=== PATIENT | female | born 1950 | race Caucasian/White ===

== ENCOUNTER 2019-06-16 08:17 | Observation (INO) ==
[2019-06-16] MEDS ORDERED: SODIUM CHLORIDE 0.9% 1000ML 1,000 ML IV SCH (09:00)
[2019-06-16 09:08] LABS: Basophils # (auto) 0.03 K/uL (0-0.2); Basophils % (auto) 0.4 %; Eosinophils # (auto) 0.13 K/uL (0-0.5); Eosinophils % (auto) 1.7 %; Hematocrit (blood only) 44.1 % (37-47); Hemoglobin 14.9 g/dL (12.0-16.0); Immature Granulocytes # (auto) 0.01 K/uL (0.00-0.02); Immature Granulocytes % (auto) 0.1 %; Lymphocytes # (auto) 1.27 K/uL (1.2-3.4); Lymphocytes % (auto) 16.3 %; Mean Corpuscular Hemoglobin 29.9 pg (25-34); Mean Corpuscular Hgb Conc 33.8 g/dL (32-36); Mean Corpuscular Volume 88.6 fL (80-100); Mean Platelet Volume 9.9 fL (7.4-10.4); Monocytes # (auto) 0.49 K/uL (0.11-0.59); Monocytes % (auto) 6.3 %; Neutrophils # (auto) 5.85 K/uL (1.4-6.5); Neutrophils % (auto) 75.2 %; Platelet Count 250 K/uL (130-400); RDW Coefficient of Variation 12.7 % (11.5-14.5); Red Blood Count 4.98 M/uL (4.2-5.4); White Blood Count 7.78 K/uL (4.8-10.8)
[2019-06-16 09:18] LABS: Alanine Aminotransferase 22 U/L (12-78); Aspartate Aminotransferase 23 U/L (15-37); BUN Creatinine Ratio 20.1 (10-20); Blood Urea Nitrogen 16 mg/dl (7-18); Calcium 9.4 mg/dl (8.5-10.1); Carbon Dioxide 30 mmol/L (21-32); Chloride 106 mmol/L (98-107); Creatinine Clr Calc Pharmacy 58.1 ml/min; Est GFR (African American) 87.8; Est GFR (Non-African American) 75.8; Glucose 89 mg/dl (70-99); Lipase 101 U/L (73-393); Magnesium 2.1 mg/dl (1.8-2.4); Potassium 4.3 mmol/L (3.5-5.1); Sodium 141 mmol/L (136-145)
[2019-06-16 09:23] LABS: Alkaline Phosphatase 74 U/L (45-117); Bilirubin,Total 0.5 mg/dl (0.2-1); Globulin 3.9 gm/dl (2.5-4.0); Phosphorus 3.2 mg/dl (2.5-4.9); Total Protein 7.9 gm/dl (6.4-8.2); Troponin I < 0.015 ng/ml (0-0.045)
--- NOTE | 2019-06-16 09:28 | XRay Report ---
XR chest 1V portable CLINICAL HISTORY: Chest Pain dyspnea COMPARISON STUDY: No previous studies for comparison. FINDINGS: The bones soft tissues and hemidiaphragms are normal. The cardiomediastinal silhouette is n ormal. The lungs are clear. The pulmonary vasculature is normal. IMPRESSION: Negative chest. ACT 112: Negative or not required by law. The above report was generated using voice recognition software. It may contain grammatical, syntax or spelling errors. Electronically signed by: Maximiliano Arciniega M.D. 06/16/2019 9:27 AM
[2019-06-16] MEDS ORDERED: OPTIRAY 320 125ml IV PRN (10:01)
--- NOTE | 2019-06-16 10:19 | CT Scan Report ---
HEAD CT NONCONTRAST CT DOSE: HISTORY: transient ataxia TECHNIQUE: Multiaxial CT images of the head were performed without the use of intravenous contrast. A utomated exposure control was utilized for this study. A dose lowering technique was utilized adheri ng to the principles of ALARA. Comparison: None. Findings: The paranasal sinuses and mastoid air cells are clear. The calvarium and skull base are int act. The ventricles and sulci are within normal limits. There is no mass, hematoma, midline shift, or acute infarct. Impression: No acute intracranial abnormality. ACT 112: Negative or not required by law. Electronically signed by: Roberto Martinez M.D. 06/16/2019 10:18 AM
--- NOTE | 2019-06-16 10:20 | CT Scan Report ---
CT angio head w con HISTORY: Mental status change transient ataxia TECHNIQUE: Multiaxial CT angiography of the head was performed IV contrast: 100 cc nonionic Maximu m intensity projection images were also obtained. A dose lowering technique was utilized adhering to the principles of ALARA. COMPARISON: None. FINDINGS: There is no mass, hematoma, midline shift, or acute infarct. Visualized intracranial software development intern al carotid arteries, distal vertebral arteries, and basilar artery are widely patent. There is no sig nificant stenosis, occlusion, or aneurysm seen within the bilateral ACAs, MCAs, or clinical nutritionist. IMPRESSION: No significant stenosis, occlusion, or aneurysm within the [place]. ACT 112: Negative or not required by law. The above report was generated using voice recognition software. It may contain grammatical, syntax or spelling errors. Electronically signed by: Maximiliano Arciniega M.D. 06/16/2019 10:18 AM
--- NOTE | 2019-06-16 10:28 | CT Scan Report ---
CT angio neck with con HISTORY: Mental status change transient ataxia TECHNIQUE: Multiaxial CT angiography of the neck was performed IV contrast: 100 cc non-ionic All kmio surements were calculated based on NASCET criteria. Maximum intensity projection images were also ob tained. A dose lowering technique was utilized adhering to the principles of ALARA. COMPARISON STUDY: None. FINDINGS: The aortic arch and proximal great vessels are widely patent. The vertebral basilar system appears unremarkable. The left carotid system demonstrates minimal plaque formation at the bifurcation. There is no signifi cant stenotic process. The right carotid bifurcation shows more significant calcific plaque formation. There is 50% narrowin g of the origin of the right internal carotid artery. There is minimal narrowing origin of the right external carotid artery. IMPRESSION: 1. Normal vertebral basilar system. 2. 50% narrowing origin right internal carotid artery. 3. Minimal plaque formation right external carotid artery. 4. Minimal plaque formation left carotid bifurcation with no significant stenosis. ACT 112: Negative or not required by law. The above report was generated using voice recognition software. It may contain grammatical, syntax or spelling errors. Electronically signed by: Maximiliano Arciniega M.D. 06/16/2019 10:27 AM
--- NOTE | 2019-06-16 11:11 | Emergency Department Note ---
ED Visit Note Patient seen in conjunction with Dr. Up. Please see his documentation for medical decision making. . Resident Activity Tracking Resident Involvement: Resident Care Provided Care Provided: Adult ED
--- NOTE | 2019-06-16 12:07 | History & Physical Report ---
Date of Service June 16, 2019 Assessment & Plan (1) Stroke-like symptom: 68yo C female with HTN, HLP presenting with episode of ataxia, lightheadedness and visual disturbance. Afebrile, HD stable, imaging unrevealing thus far, some 50% stenosis in R ICA. Concern for TIA/CVA vs blood pressure fluctuation/orthostasis with newly increased Lisinopril -Observation to medical floor with telemetry -Neuro checks/ stroke protocol -Check orthostatic VS -Check Lipids/AIC -Check MRI brain -Check 2D echo - patient with 3/6 IGNACIO -Lipids and A1C in AM -Will increase Pravastatin to 40mg po daily -Initiate ASA 81mg po daily -Neurology consultation per protocol appreciated Present on Admission?: Yes (2) HTN (hypertension): Patient recently increased her Lisinopril from 20mg to 40mg daily -Check orthostatic VS x 1 -Hold Lisinopril for now to allow for permissive HTN in possible TIA/CVA -Continue to monitor Present on Admission?: Yes (3) Hyperlipidemia: Chronic -Increase Pravastatin to 40mg po daily -Continue CoQ10 -Lipid panel in AM Present on Admission?: Yes (4) GERD (gastroesophageal reflux disease): Chronic. Stable -Continue Protonix F/E/N - Heplock. Electrolytes WNL, glucose and Na. Heart healthy diet as tolerated Ppx - SCDs Code - FUll Dispo - Observation to medical floor with telemetry History of Present Illness Chief Complaint: Ataxia Primary Care Provider: Jamari Escalona DO Maria Luisa Virgen is a pleasant 68yo C female with remote history of breast cancer s/p partial mastectomy and XRT, briefly on hormone therapy, HTN/HLP and GERD. She presents today after a brief episode of ataxia. She reports waking this morning and having some bandlike discomfort across her back/shoulder blades. When she got out of bed to walk to the bathroom she felt unsteady on her feet, lightheaded and started leaning to the right. She also had some blurry vision in both eyes. She sat down and checked her blood pressure which was 150 systolic. She took her Lisinopril 40mg. Her symptoms resolved after approximately 10 minutes. Patient now with mild headache and still has some minor visual disturbance/blurry vision in her right eye. Otherwise no complaints. She denies fevers/chills/chest pain/palpitations/SOB/cough/wheeze/abdominal pain/nausea/vomiting or diarrhea. She has constipation at baseline. She reports markedly elevated blood pressures a few weeks ago - 170 - 180/100. She recently increased her Lisinopril from 20mg po daily to 40. She keeps track of her blood pressure and has noticed improvement with the increased dose. Now 130-140's typically. She has occasional dizziness after taking her medication. ER Course: NSS Allergies Allergy/AdvReac Type Severity Reaction Status Date / Time steroids Allergy Severe severe Uncoded 06/16/19 08:52 rash from knees to neck Home Medications Home Medications Medication Instructions Recorded Confirmed Type albuterol sulfate 2 puff INHALATION Q4H PRN 06/16/19 06/16/19 History coenzyme Q10 [CoQ-10] 30 mg PO HS 06/16/19 06/16/19 History lisinopril 40 mg PO QAM 06/16/19 06/16/19 History melatonin 5 mg PO HS 06/16/19 06/16/19 History pantoprazole 40 mg PO QAM 06/16/19 06/16/19 History pravastatin 10 mg PO HS 06/16/19 06/16/19 History Past Med/Surg History Medical History (Updated 06/16/19 @ 12:06 by Patience Ontiveros DO) Breast cancer (Chronic ~2008) GERD (gastroesophageal reflux disease) HTN (hypertension) (Acute) Hyperlipidemia Surgical History (Updated 06/16/19 @ 11:57 by Patience Ontiveros DO) History of cholecystectomy History of lumpectomy Family History Other Myocardial infarction Social History (Updated 06/16/19 @ 11:58 by Patience Ontiveros DO) Feels Safe at Home: Yes Smoking Status: Never smoker Hx Alcohol Use: Yes Alcohol Intake Frequency: Holidays/Special Occasions Hx Substance Use: No Review of Systems Review of Systems: All systems reviewed & are unremarkable except as noted in HPI & below Physical Exam Physical Exam: General: patient resting comfortably, NAD, non-toxic in appearance, AA&O x 4 Skin: warm, dry, intact, no rashes or lesions HEENT: NC/AT, PERRL, EOMI, anicteric sclera, conjunctiva without injection, external ear normal to inspection and nontender, nares patent, moist mucus membranes, dentition intact, no oropharyngeal lesions, neck supple, trachea midline, no LAD, no thyromegaly, no JVD, +ear creases Heart: +S1/S2, regular, 3/6 IGNACIO across precordium to bilateral carotids Lungs: equal air entry bilaterally, no rales/rhonchi/wheezes Abd: +BS, soft, NT/ND, no masses/organomegaly/ascites Ext: warm, 2+ pulses in UE/LE bilaterally, no clubbing/cyanosis or edema Neuro: nonfocal, patient AA&O x 4, speech intact, no facial droop, CN II - XII intact, no nystagmus, sensation to light touch intact, moving all extremities on command with equal strength 5/5, coordination intact with finger to nose and heel to lopez. Patient reports unsteady gait and dizziness while using the bathroom. Results & Data Vital Signs (Past 12 Hours) Vital Signs Temp Pulse Pulse Resp BP BP Pulse Ox 06/16/19 11:00 84 18 137/78 97 06/16/19 10:30 84 21 141/73 H 98 06/16/19 10:11 85 24 152/68 H 98 06/16/19 09:30 82 14 149/86 H 99 06/16/19 09:00 90 18 169/90 H 97 06/16/19 08:33 112 H 18 178/86 H 96 06/16/19 08:30 98 06/16/19 08:18 36.5 C 104 H 20 181/82 H 98 Laboratory Results Lab Results 06/16/19 06/16/19 Range/Units 08:55 08:55 WBC 7.78 (4.8-10.8) K/uL RBC 4.98 (4.2-5.4) M/uL Hgb 14.9 (12.0-16.0) g/dL Hct 44.1 (37-47) % MCV 88.6 (80-100) fL MCH 29.9 (25-34) pg MCHC 33.8 (32-36) g/dL RDW Std Deviation 41.0 (36.4-46.3) fL RDW Coeff of Kal 12.7 (11.5-14.5) % Plt Count 250 (130-400) K/uL MPV 9.9 (7.4-10.4) fL Immature Gran % (Auto) 0.1 % Neut % (Auto) 75.2 % Lymph % (Auto) 16.3 % [place] % (Auto) 6.3 % Eos % (Auto) 1.7 % Baso % (Auto) 0.4 % Immature Gran # (Auto) 0.01 (0.00-0.02) K/uL Neut # (Auto) 5.85 (1.4-6.5) K/uL Lymph # (Auto) 1.27 (1.2-3.4) K/uL Hardin # (Auto) 0.49 (0.11-0.59) K/uL Eos # (Auto) 0.13 (0-0.5) K/uL Baso # (Auto) 0.03 (0-0.2) K/uL Sodium 141 (136-145) mmol/L Potassium 4.3 (3.5-5.1) mmol/L Chloride 106 (98-107) mmol/L Carbon Dioxide 30 (21-32) mmol/L Anion Gap 4.0 (3-11) BUN 16 (7-18) mg/dl Creatinine 0.80 (0.6-1.2) mg/dl Est Cr Clr Drug Dosing 58.1 ml/min Est GFR ( Amer) 87.8 Est GFR (Non-Af Amer) 75.8 BUN/Creatinine Ratio 20.1 H (10-20) Glucose 89 (70-99) mg/dl Calcium 9.4 (8.5-10.1) mg/dl Phosphorus 3.2 (2.5-4.9) mg/dl Magnesium 2.1 (1.8-2.4) mg/dl Total Bilirubin 0.5 (0.2-1) mg/dl AST 23 (15-37) U/L ALT 22 (12-78) U/L Alkaline Phosphatase 74 (45-117) U/L Troponin I < 0.015 (0-0.045) ng/ml Total Protein 7.9 (6.4-8.2) gm/dl Albumin 4.0 (3.4-5.0) gm/dl Globulin 3.9 (2.5-4.0) gm/dl Albumin/Globulin Ratio 1.0 (0.9-2) Lipase 101 (73-393) U/L Diagnostic Findings XR chest 1V portable CLINICAL HISTORY: Chest Pain dyspnea COMPARISON STUDY: No previous studies for comparison. FINDINGS: The bones soft tissues and hemidiaphragms are normal. The cardiomediastinal silhouette is normal. The lungs are clear. The pulmonary vasculature is normal. IMPRESSION: Negative chest. ACT 112: Negative or not required by law. The above report was generated using voice recognition software. It may contain grammatical, syntax or spelling errors. Electronically signed by: Maximiliano Arciniega M.D. 06/16/2019 9:27 AM Dictated: 06/16/[address] DOSE: HISTORY: transient ataxia TECHNIQUE: Multiaxial CT images of the head were performed without the use of intravenous contrast. Automated exposure control was utilized for this study. A dose lowering technique was utilized adhering to the principles of ALARA. Comparison: None. Findings: The paranasal sinuses and mastoid air cells are clear. The calvarium and skull base are intact. The ventricles and sulci are within normal limits. There is no mass, hematoma, midline shift, or acute infarct. Impression: No acute intracranial abnormality. ACT 112: Negative or not required by law. Electronically signed by: Roberto Martinez M.D. 06/16/2019 10:18 AM Dictated: 06/16/19 101 Transcribed: 06/16/[address] angio head w con HISTORY: Mental status change transient ataxia TECHNIQUE: Multiaxial CT angiography of the head was performed IV contrast: 100 cc nonionic Maximum intensity projection images were also obtained. A dose lowering technique was utilized adhering to the principles of ALARA. COMPARISON: None. FINDINGS: There is no mass, hematoma, midline shift, or acute infarct. V isualized intracranial internal carotid arteries, distal vertebral arteries, and basilar artery are widely patent. There is no significant stenosis, occlusion, or aneurysm seen within the bilateral ACAs, MCAs, or commutator tester. IMPRESSION: No significant stenosis, occlusion, or aneurysm within the [place]. ACT 112: Negative or not required by law. The above report was generated using voice recognition software. It may contain grammatical, syntax or spelling errors. Electronically signed by: Maximiliano Arciniega M.D. 06/16/2019 10:18 AM Dictated: 06/16/19 1015 Transcribed: 06/16/19 1015 -- CT angio neck with con HISTORY: Mental status change transient ataxia TECHNIQUE: Multiaxial CT angiography of the neck was performed IV contrast: 100 cc non-ionic All measurements were calculated based on NASCET criteria. Maximum intensity projection images were also obtained. A dose lowering technique was utilized adhering to the principles of ALARA. COMPARISON STUDY: None. FINDINGS: The aortic arch and proximal great vessels are widely patent. The vertebral basilar system appears unremarkable. The left carotid system demonstrates minimal plaque formation at the bifurcation. There is no significant stenotic process. The right carotid bifurcation shows more significant calcific plaque formation. There is 50% narrowing of the origin of the right internal carotid artery. There is minimal narrowing origin of the right external carotid artery. IMPRESSION: 1. Normal vertebral basilar system. 2. 50% narrowing origin right internal carotid artery. 3. Minimal plaque formation right external carotid artery. 4. Minimal plaque formation left carotid bifurcation with no significant stenosis. ACT 112: Negative or not required by law. The above report was generated using voice recognition software. It may contain grammatical, syntax or spelling errors. Electronically signed by: Maximiliano Arciniega M.D. 06/16/2019 10:27 AM Dictated: 06/16/19 1018 Transcribed: 06/16/19 1018 ECG Additional Comments: ST at 102bpm, normal axis, MM=414, QRS=70, ZYs=976, no acute ischemic changes Code Status & VTE Plan VTE Prophylaxis Plan VTE Prophylaxis will be ordered: Yes PG Care Time/CCT Total # of Minutes Spent Total Time Spent with Patient: Total time spent is greater than 50% in coordination of care (as documented) at patient's floor/unit and/or counseling patient: Coding Level of Care Code 33210 OBS Care - Level 3 Diagnoses Stroke-like symptom R29.90 HTN (hypertension) I10 Hypertension type: unspecified Hyperlipidemia E78.5 Hyperlipidemia type: unspecified GERD (gastroesophageal reflux disease) K21.9 Esophagitis presence: esophagitis presence not specified (1) GERD (gastroesophageal reflux disease) Esophagitis presence: esophagitis presence not specified Qualified Code(s): K21.9 - Gastro-esophageal reflux disease without esophagitis (2) Hyperlipidemia Hyperlipidemia type: unspecified Qualified Code(s): E78.5 - Hyperlipidemia, unspecified (3) HTN (hypertension) Hypertension type: unspecified Qualified Code(s): I10 - Essential (primary) hypertension
--- NOTE | 2019-06-16 12:08 | History & Physical Report ---
Date of Service June 16, 2019 Assessment & Plan (1) Stroke-like symptom: 68yo C female with HTN, HLP presenting with episode of ataxia, lightheadedness and visual disturbance. Afebrile, HD stable, imaging unrevealing thus far, some 50% stenosis in R ICA. Concern for TIA/CVA vs blood pressure fluctuation/orthostasis with newly increased Lisinopril -Observation to medical floor with telemetry -Neuro checks/ stroke protocol -Check orthostatic VS -Check Lipids/AIC -Check MRI brain -Check 2D echo - patient with 3/6 IGNACIO -Lipids and A1C in AM -Will increase Pravastatin to 40mg po daily -Initiate ASA 81mg po daily -Neurology consultation per protocol appreciated (2) HTN (hypertension): Patient recently increased her Lisinopril from 20mg to 40mg daily -Check orthostatic VS x 1 -Hold Lisinopril for now to allow for permissive HTN in possible TIA/CVA -Continue to monitor (3) Hyperlipidemia: Chronic -Increase Pravastatin to 40mg po daily -Continue CoQ10 -Lipid panel in AM (4) GERD (gastroesophageal reflux disease): Chronic. Stable -Continue Protonix F/E/N - Heplock. Electrolytes WNL, glucose and Na. Heart healthy diet as tolerated Ppx - SCDs Code - FUll Dispo - Observation to medical floor with telemetry History of Present Illness Primary Care Provider: DO Maria Luisa Merritt is a pleasant 68yo C female with remote history of breast cancer s/p partial mastectomy and XRT, briefly on hormone therapy, HTN/HLP and GERD. She presents today after a brief episode of ataxia. She reports waking this morning and having some bandlike discomfort across her back/shoulder blades. When she got out of bed to walk to the bathroom she felt unsteady on her feet, lightheaded and started leaning to the right. She also had some blurry vision in both eyes. She sat down and checked her blood pressure which was 150 systolic. She took her Lisinopril 40mg. Her symptoms resolved after approximately 10 minutes. Patient now with mild headache and still has some minor visual disturbance/blurry vision in her right eye. Otherwise no complaints. She denies fevers/chills/chest pain/palpitations/SOB/cough/wheeze/abdominal pain/nausea/vomiting or diarrhea. She has constipation at baseline. She reports markedly elevated blood pressures a few weeks ago - 170 - 180/100. She recently increased her Lisinopril from 20mg po daily to 40. She keeps track of her blood pressure and has noticed improvement with the increased dose. Now 130-140's typically. She has occasional dizziness after taking her medication. ER Course: NSS Allergies Allergy/AdvReac Type Severity Reaction Status Date / Time steroids Allergy Severe severe Uncoded 06/16/19 08:52 rash from knees to neck Home Medications Home Medications Medication Instructions Recorded Confirmed Type albuterol sulfate 2 puff INHALATION Q4H PRN 06/16/19 06/16/19 History coenzyme Q10 [CoQ-10] 30 mg PO HS 06/16/19 06/16/19 History lisinopril 40 mg PO QAM 06/16/19 06/16/19 History melatonin 5 mg PO HS 06/16/19 06/16/19 History pantoprazole 40 mg PO QAM 06/16/19 06/16/19 History pravastatin 10 mg PO HS 06/16/19 06/16/19 History Past Med/Surg History Medical History (Updated 06/16/19 @ 12:06 by Patience Ontiveros DO) Breast cancer (Chronic ~2008) GERD (gastroesophageal reflux disease) HTN (hypertension) (Acute) Hyperlipidemia Surgical History (Updated 06/16/19 @ 11:57 by Patience Ontiveros DO) History of cholecystectomy History of lumpectomy Family History Other Myocardial infarction Social History (Updated 06/16/19 @ 11:58 by Patience Ontiveros DO) Preferred Language: Setswana Communication Ability: Effective Slot Router Required: No Beliefs That Will Affect Care: None Current Living Situation: Alone Feels Safe at Home: Yes Smoking Status: Never smoker Hx Alcohol Use: Yes Alcohol type: wine Alcohol Intake Frequency: Holidays/Special Occasions Hx Substance Use: No Review of Systems Review of Systems: All systems reviewed & are unremarkable except as noted in HPI & below +THOMPSON +Left eye visual disturbance Physical Exam Physical Exam: General: patient resting comfortably, NAD, non-toxic in appearance, AA&O x 4 Skin: warm, dry, intact, no rashes or lesions HEENT: NC/AT, PERRL, EOMI, anicteric sclera, conjunctiva without injection, external ear normal to inspection and nontender, nares patent, moist mucus membranes, dentition intact, no oropharyngeal lesions, neck supple, trachea midline, no LAD, no thyromegaly, no JVD Heart: +S1/S2, regular, no m/r/g Lungs: equal air entry bilaterally, no rales/rhonchi/wheezes Abd: +BS, soft, NT/ND, no masses/organomegaly/ascites Ext: warm, 2+ pulses in UE/LE bilaterally, no clubbing/cyanosis or edema Neuro: nonfocal, patient AA&O x 4, speech intact, no facial droop, CN II-XII intact, sensation to light touch intact, moving all extremities on command with equal strength 5/5, coordination by [id number] and soor-zw-pefh intact, gait unsteady per report Results & Data Vital Signs (Past 12 Hours) Vital Signs Temp Pulse Pulse Resp BP BP Pulse Ox 06/16/19 11:00 84 18 137/78 97 06/16/19 10:30 84 21 141/73 H 98 06/16/19 10:11 85 24 152/68 H 98 06/16/19 09:30 82 14 149/86 H 99 06/16/19 09:00 90 18 169/90 H 97 06/16/19 08:33 112 H 18 178/86 H 96 06/16/19 08:30 98 06/16/19 08:18 36.5 C 104 H 20 181/82 H 98 Laboratory Results Lab Results 06/16/19 06/16/19 06/16/19 Range/Units 08:55 08:55 08:55 WBC 7.78 (4.8-10.8) K/uL RBC 4.98 (4.2-5.4) M/uL Hgb 14.9 (12.0-16.0) g/dL Hct 44.1 (37-47) % MCV 88.6 (80-100) fL MCH 29.9 (25-34) pg MCHC 33.8 (32-36) g/dL RDW Std Deviation 41.0 (36.4-46.3) fL RDW Coeff of [place] 12.7 (11.5-14.5) % Plt Count 250 (130-400) K/uL MPV 9.9 (7.4-10.4) fL Immature Gran % (Auto) 0.1 % Neut % (Auto) 75.2 % Lymph % (Auto) 16.3 % [place] % (Auto) 6.3 % Eos % (Auto) 1.7 % Baso % (Auto) 0.4 % Immature Gran # (Auto) 0.01 (0.00-0.02) K/uL Neut # (Auto) 5.85 (1.4-6.5) K/uL Lymph # (Auto) 1.27 (1.2-3.4) K/uL [place] # (Auto) 0.49 (0.11-0.59) K/uL Eos # (Auto) 0.13 (0-0.5) K/uL Baso # (Auto) 0.03 (0-0.2) K/uL Sodium 141 (136-145) mmol/L Potassium 4.3 (3.5-5.1) mmol/L Chloride 106 (98-107) mmol/L Carbon Dioxide 30 (21-32) mmol/L Anion Gap 4.0 (3-11) BUN 16 (7-18) mg/dl Creatinine 0.80 (0.6-1.2) mg/dl Est Cr Clr Drug Dosing 58.1 ml/min Est GFR ( Amer) 87.8 Est GFR (Non-Af Amer) 75.8 BUN/Creatinine Ratio 20.1 H (10-20) Glucose 89 (70-99) mg/dl Calcium 9.4 (8.5-10.1) mg/dl Phosphorus 3.2 (2.5-4.9) mg/dl Magnesium 2.1 (1.8-2.4) mg/dl Total Bilirubin 0.5 (0.2-1) mg/dl AST 23 (15-37) U/L ALT 22 (12-78) U/L Alkaline Phosphatase 74 (45-117) U/L Troponin I < 0.015 (0-0.045) ng/ml Total Protein 7.9 (6.4-8.2) gm/dl Albumin 4.0 (3.4-5.0) gm/dl Globulin 3.9 (2.5-4.0) gm/dl Albumin/Globulin Ratio 1.0 (0.9-2) Lipase 101 (73-393) U/L Hepatitis C Ab Screen Neg (Neg) Diagnostic Findings XR chest 1V portable CLINICAL HISTORY: Chest Pain dyspnea COMPARISON STUDY: No previous studies for comparison. FINDINGS: The bones soft tissues and hemidiaphragms are normal. The cardiomediastinal silhouette is normal. The lungs are clear. The pulmonary vasculature is normal. IMPRESSION: Negative chest. ACT 112: Negative or not required by law. The above report was generated using voice recognition software. It may contain grammatical, syntax or spelling errors. Electronically signed by: Maximiliano Arciniega M.D. 06/16/2019 9:27 AM [facility], [place] [phone] CT Scan Report Patient: MARIA LUISA GOLDBERG IAdmit Date: 06/16/19 MR#: [id number]: [id number] [facility] Acct ID:[id number]: Date: 1950[facility] Zip: [id number] Age: 68Location: ED Sex: F Room/Bed: Att Phy:Diagnosis: HIGH BP,DIZZY,TIGHTNESS IN SHOULDER BLADES Mandy Phy: Jamari Escalona D.O.Service Date: 06/16/19 Fam Phy:Interpreting Phy: Roberto Martinez MD Admit Phy: Ordering Phy: Crescencio Up M.D. cc: ~ HEAD CT NONCONTRAST CT DOSE: HISTORY: transient ataxia TECHNIQUE: Multiaxial CT images of the head were performed without the use of intravenous contrast. Automated exposure control was utilized for this study. A dose lowering technique was utilized adhering to the principles of ALARA. Comparison: None. Findings: The paranasal sinuses and mastoid air cells are clear. The calvarium and skull base are intact. The ventricles and sulci are within normal limits. There is no mass, hematoma, midline shift, or acute infarct. Impression: No acute intracranial abnormality. ACT 112: Negative or not required by law. Electronically signed by: Roberto Martinez M.D. 06/16/2019 10:18 AM Dictated: 06/16/19 1012 Transcribed: 06/16/19 101[address] CT angio head w con HISTORY: Mental status change transient ataxia TECHNIQUE: Multiaxial CT angiography of the head was performed IV contrast: 100 cc nonionic Maximum intensity projection images were also obtained. A dose lowering technique was utilized adhering to the principles of ALARA. COMPARISON: None. FINDINGS: There is no mass, hematoma, midline shift, or acute infarct. Visualized intracranial internal carotid arteries, distal vertebral arteries, and basilar artery are widely patent. There is no significant stenosis, occlusion, or aneurysm seen within the bilateral ACAs, MCAs, or business communications instructor. IMPRESSION: No significant stenosis, occlusion, or aneurysm within the [place] of [place]. ACT 112: Negative or not required by law. The above report was generated using voice recognition software. It may contain grammatical, syntax or spelling errors. Electronically signed by: Maximiliano Arciniega M.D. 06/16/2019 10:18 AM Dictated: 06/16/19 1015 Transcribed: 06/16/[address] angio neck with con HISTORY: Mental status change transient ataxia TECHNIQUE: Multiaxial CT angiography of the neck was performed IV contrast: 100 cc non-ionic All measurements were calculated based on NASCET criteria. Maximum intensity projection images were also obtained. A dose lowering technique was utilized adhering to the principles of ALARA. COMPARISON STUDY: None. FINDINGS: The aortic arch and proximal great vessels are widely patent. The vertebral basilar system appears unremarkable. The left carotid system demonstrates minimal plaque formation at the bifurcation. There is no significant stenotic process. The right carotid bifurcation shows more significant calcific plaque formation. There is 50% narrowing of the origin of the right internal carotid artery. There is minimal narrowing origin of the right external carotid artery. IMPRESSION: 1. Normal vertebral basilar system. 2. 50% narrowing origin right internal carotid artery. 3. Minimal plaque formation right external carotid artery. 4. Minimal plaque formation left carotid bifurcation with no significant stenosis. ACT 112: Negative or not required by law. The above report was generated using voice recognition software. It may contain grammatical, syntax or spelling errors. Electronically signed by: Maximiliano Arciniega M.D. 06/16/2019 10:27 AM Dictated: 06/16/19 1018 ECG Additional Comments: ST at 102, normal axis and intervals, no acute ischemic Code Status & VTE Plan Code Status FULL CODE VTE Prophylaxis Plan VTE Prophylaxis will be ordered: Yes PG Care Time/CCT Total # of Minutes Spent Total Time Spent with Patient: Total time spent is greater than 50% in coordination of care (as documented) at patient's floor/unit and/or counseling patient: Coding Level of Care Code 14117 OBS Care - Level 3 Diagnoses Stroke-like symptom R29.90 HTN (hypertension) I10 Hypertension type: unspecified Hyperlipidemia E78.5 Hyperlipidemia type: unspecified GERD (gastroesophageal reflux disease) K21.9 Esophagitis presence: esophagitis presence not specified (1) Hyperlipidemia Hyperlipidemia type: unspecified Qualified Code(s): E78.5 - Hyperlipidemia, unspecified (2) GERD (gastroesophageal reflux disease) Esophagitis presence: esophagitis presence not specified Qualified Code(s): K21.9 - Gastro-esophageal reflux disease without esophagitis (3) HTN (hypertension) Hypertension type: unspecified Qualified Code(s): I10 - Essential (primary) hypertension
[2019-06-16] MEDS ORDERED: ACETAMINOPHEN 325 MG TAB PO PRN (13:13)
--- NOTE | 2019-06-16 16:51 | XCELERA ---
[id number] \\[email or web address]\[id number]
--- NOTE | 2019-06-16 16:56 | Emergency Department Note ---
Entered by Deirdre Rothman acting as a scribe for History of Present Illness General Chief complaint: Hypertension Stated complaint: HIGH BP,DIZZY,TIGHTNESS IN SHOULDER BLADES Time Seen by Provider: 06/16/19 08:23 Source: patient History of Present Illness Onset (ago): hour(s) 1 Location: head (hypertension) Severity: mild Pain Consistency: + other (persistent) Maximum Pain Intensity: 2 Quality: + other (hypertension) Exacerbated By: + movement (moving head from side to side) Associated symptoms: + other (dizzy, light headed, off balance, tingling down both arms); no chest pain and no weakness Treatments prior to arrival: other (Lisinopril) The patient is a 68 year old female presenting to the Emergency Department complaining of persistent hypertension starting 1 hour ago. The patient reports that she woke up this morning and became dizzy. She describes this dizziness as light headedness. She states that she was off balance because of this and found herself walking sideways. She explains that she is experiencing mild tingling down both of her arms but not her legs. She notes that when she moves her head from side to side her light headedness worsens. She notes that she has never experienced these symptoms before. She adds that she believes these symptoms may be due to her high blood pressure. The patient reports that her Lisinopril was increased from 20 mg to 40 mg in the past 2 weeks. 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 The patient denies weakness and chest pain. Home Medications Home Medications Medication Instructions Recorded Confirmed Type albuterol sulfate 2 puff INHALATION Q4H PRN 06/16/19 06/16/19 History coenzyme Q10 [CoQ-10] 30 mg PO HS 06/16/19 06/16/19 History lisinopril 40 mg PO QAM 06/16/19 06/16/19 History melatonin 5 mg PO HS 06/16/19 06/16/19 History pantoprazole 40 mg PO QAM 06/16/19 06/16/19 History pravastatin 10 mg PO HS 06/16/19 06/16/19 History Allergies Allergy/AdvReac Type Severity Reaction Status Date / Time steroids Allergy Severe severe Uncoded 06/16/19 08:52 rash from knees to neck Past Med/Surg History Medical History Breast cancer (Chronic ~2009) GERD (gastroesophageal reflux disease) HTN (hypertension) (Acute) Hyperlipidemia Surgical History History of cholecystectomy History of lumpectomy Family History Other Myocardial infarction Social History Preferred Language: Danish Communication Ability: Effective 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 and A total of 10 systems reviewed and were otherwise negative Physical Exam Vital Signs Vital Signs - 24 hr 06/16/19 08:18 06/16/19 08:30 06/16/19 08:33 Temperature 36.5 C Temperature Source Oral Pulse Rate 104 H Pulse Rate [Apical] 112 H Pulse Rate from SpO2 Sensor Respiratory Rate 20 18 Blood Pressure 181/82 H Blood Pressure [Left Arm] 178/86 H Blood Pressure Mean 115 Blood Pressure Mean [Left Arm] 116 Pulse Oximetry 98 98 96 Oxygen Delivery Method Room Air Room Air Room Air Sepsis Recent Fever Within 48 Hours No Sepsis New/Unexplained Change in Mental Status No Sepsis Action Taken by Nursing No Action Required 06/16/19 09:00 06/16/19 09:30 06/16/19 10:11 Temperature Temperature Source Pulse Rate 90 82 85 Pulse Rate [Apical] Pulse Rate from SpO2 Sensor 90 83 86 Respiratory Rate 18 14 24 Blood Pressure 169/90 H 149/86 H 152/68 H Blood Pressure [Left Arm] Blood Pressure Mean 115 117 87 Blood Pressure Mean [Left Arm] Pulse Oximetry 97 99 98 Oxygen Delivery Method Room Air Room Air Room Air Sepsis Recent Fever Within 48 Hours Sepsis New/Unexplained Change in Mental Status Sepsis Action Taken by Nursing 06/16/19 10:30 06/16/19 11:00 06/16/19 11:30 Temperature Temperature Source Pulse Rate 84 84 93 H Pulse Rate [Apical] Pulse Rate from SpO2 Sensor 84 83 93 H Respiratory Rate 21 18 21 Blood Pressure 141/73 H 137/78 172/95 H Blood Pressure [Left Arm] Blood Pressure Mean 98 95 100 Blood Pressure Mean [Left Arm] Pulse Oximetry 98 97 96 Oxygen Delivery Method Room Air Sepsis Recent Fever Within 48 Hours Sepsis New/Unexplained Change in Mental Status Sepsis Action Taken by Nursing GENERAL: Awake, alert, fatigued but well-appearing, in no distress HENT: Mild maxillary sinus discomfort without discrete tenderness. Normocephalic, atraumatic. Oropharynx with dry mucous membranes and otherwise unremarkable. EYES: Normal conjunctiva. Sclera non-icteric. EOMI. No nystamgus. PEARRL. NECK: Supple. No nuchal rigidity. FROM. No JVD. RESPIRATORY: CTAB. CARDIAC: Regular rate, normal rhythm. Extremities warm and well perfused. 3/6 systolic murmur. Pulses equal. ABDOMEN: Soft, non-distended. No tenderness to palpation. No rebound or guarding. No masses. RECTAL: Deferred. MUSCULOSKELETAL: Chest examination reveals no tenderness. The back is symmetrical on inspection without obvious abnormality. There is no CVA tenderness to palpation. No joint edema. LOWER EXTREMITIES: Calves are equal size bilaterally and non-tender. No edema. No discoloration. NEURO: Normal sensorium. No sensory or motor deficits noted. Normal cerebellar function including finger to nose, alternating palms and heal to lopez. 5/5 strength. SILT x 4 extremities. SKIN: No rash or jaundice noted. Course Course 08: The patient was evaluated in room C7, and a complete history and physical examination were performed. 1107: I discussed the patients case with Dr. Ontiveros [facility] hospitalist. He will evaluate the patient for further management. 1118: EMR reviewed. The patient had a trans thoracic echocardiogram in 2018 that a showed calcified tricuspid aortic value without stenosis and a mitral valve calcified annulus without stenosis. Normal EF. Normal left ventricle size and systolic function without regional wall motion abnormalities. 1142: I spoke with Dr. Ontiveros at this time. Administered Medications Ioversol (Optiray 320 125ml) 120 ml IV ONCE PRN PRN Reason: Interaction Checking Stop: 06/20/19 10:00 Last Admin: 06/16/19 10:01 Dose: 120 ml Documented by: [id number] Discontinued Medications Sodium Chloride (Nss 1000ml) 1,000 mls @ 999 mls/hr IV .Q1H1M EMILY Stop: 06/16/19 10:00 Last Infusion: 06/16/19 10:05 Dose: 0 mls/hr Documented by: [id number] Admin: 06/16/19 09:00 Dose: 999 mls/hr Documented by: [id number] Medical Decision Making Differential Diagnosis Differential diagnosis: Etiologies such as benign positional vertigo, dehydration, hypovolemia, anemia, tumor, infection, hypoglycemia, electrolyte abnormalities, cardiac sources, intracerebral event, toxicologic, neurologic, as well as others were entertained. Medical Records Attestation: I reviewed the patient's medical records. Home Medications Current Medication List: was personally reviewed by me Laboratory Data Attestation: I reviewed the patient's lab results. Result diagrams: 06/16/19 08:55 06/16/19 08:55 Lab Results 06/16/19 06/16/19 06/16/19 Range/Units 08:55 08:55 08:55 WBC 7.78 (4.8-10.8) K/uL RBC 4.98 (4.2-5.4) M/uL Hgb 14.9 (12.0-16.0) g/dL Hct 44.1 (37-47) % MCV 88.6 (80-100) fL MCH 29.9 (25-34) pg MCHC 33.8 (32-36) g/dL RDW Std Deviation 41.0 (36.4-46.3) fL RDW Coeff of Kal 12.7 (11.5-14.5) % Plt Count 250 (130-400) K/uL MPV 9.9 (7.4-10.4) fL Immature Gran % (Auto) 0.1 % Neut % (Auto) 75.2 % Lymph % (Auto) 16.3 % Parker % (Auto) 6.3 % Eos % (Auto) 1.7 % Baso % (Auto) 0.4 % Immature Gran # (Auto) 0.01 (0.00-0.02) K/uL Neut # (Auto) 5.85 (1.4-6.5) K/uL Lymph # (Auto) 1.27 (1.2-3.4) K/uL Parker # (Auto) 0.49 (0.11-0.59) K/uL Eos # (Auto) 0.13 (0-0.5) K/uL Baso # (Auto) 0.03 (0-0.2) K/uL Sodium 141 (136-145) mmol/L Potassium 4.3 (3.5-5.1) mmol/L Chloride 106 (98-107) mmol/L Carbon Dioxide 30 (21-32) mmol/L Anion Gap 4.0 (3-11) BUN 16 (7-18) mg/dl Creatinine 0.80 (0.6-1.2) mg/dl Est Cr Clr Drug Dosing 58.1 ml/min Est GFR ( Amer) 87.8 Est GFR (Non-Af Amer) 75.8 BUN/Creatinine Ratio 20.1 H (10-20) Glucose 89 (70-99) mg/dl Calcium 9.4 (8.5-10.1) mg/dl Phosphorus 3.2 (2.5-4.9) mg/dl Magnesium 2.1 (1.8-2.4) mg/dl Total Bilirubin 0.5 (0.2-1) mg/dl AST 23 (15-37) U/L ALT 22 (12-78) U/L Alkaline Phosphatase 74 (45-117) U/L Troponin I < 0.015 (0-0.045) ng/ml Total Protein 7.9 (6.4-8.2) gm/dl Albumin 4.0 (3.4-5.0) gm/dl Globulin 3.9 (2.5-4.0) gm/dl Albumin/Globulin Ratio 1.0 (0.9-2) Lipase 101 (73-393) U/L Hepatitis C Ab Screen Neg (Neg) Imaging Data Radiologist's Impression: Radiology results as stated below per my review and the radiologist's interpretation: CT angio head w con HISTORY: Mental status change transient ataxia TECHNIQUE: Multiaxial CT angiography of the head was performed IV contrast: 100 cc nonionic Maximum intensity projection images were also obtained. A dose lowering technique was utilized adhering to the principles of ALARA. COMPARISON: None. FINDINGS: There is no mass, hematoma, midline shift, or acute infarct. Visualized intracranial internal carotid arteries, distal vertebral arteries, and basilar artery are widely patent. There is no significant stenosis, occlusion, or aneurysm seen within the bilateral ACAs, MCAs, or power press tender. IMPRESSION: No significant stenosis, occlusion, or aneurysm within the habematolel of [place]. ACT 112: Negative or not required by law. The above report was generated using voice recognition software. It may contain grammatical, syntax or spelling errors. Electronically signed by: Maximiliano Arciniega M.D. 06/16/2019 10:[address] angio neck with con HISTORY: Mental status change transient ataxia TECHNIQUE: Multiaxial CT angiography of the neck was performed IV contrast: 100 cc non-ionic All measurements were calculated based on NASCET criteria. Maximum intensity projection images were also obtained. A dose lowering technique was utilized adhering to the principles of ALARA. COMPARISON STUDY: None. FINDINGS: The aortic arch and proximal great vessels are widely patent. The vertebral basilar system appears unremarkable. The left carotid system demonstrates minimal plaque formation at the bifurcation. There is no significant stenotic process. The right carotid bifurcation shows more significant calcific plaque formation. There is 50% narrowing of the origin of the right internal carotid artery. There is minimal narrowing origin of the right external carotid artery. IMPRESSION: 1. Normal vertebral basilar system. 2. 50% narrowing origin right internal carotid artery. 3. Minimal plaque formation right external carotid artery. 4. Minimal plaque formation left carotid bifurcation with no significant stenosis. ACT 112: Negative or not required by law. The above report was generated using voice recognition software. It may contain grammatical, syntax or spelling errors. Electronically signed by: Maximiliano Arciniega M.D. 06/16/2019 10:[address]AST CT DOSE: HISTORY: transient ataxia TECHNIQUE: Multiaxial CT images of the head were performed without the use of intravenous contrast. Automated exposure control was utilized for this study. A dose lowering technique was utilized adhering to the principles of ALARA. Comparison: None. Findings: The paranasal sinuses and mastoid air cells are clear. The calvarium and skull base are intact. The ventricles and sulci are within normal limits. There is no mass, hematoma, midline shift, or acute infarct. Impression: No acute intracranial abnormality. ACT 112: Negative or not required by law. Electronically signed by: Roberto Martinez M.D. 06/16/2019 10:18 AM XR chest 1V portable CLINICAL HISTORY: Chest Pain dyspnea COMPARISON STUDY: No previous studies for comparison. FINDINGS: The bones soft tissues and hemidiaphragms are normal. The cardiomedias tinal silhouette is normal. The lungs are clear. The pulmonary vasculature is normal. IMPRESSION: Negative chest. ACT 112: Negative or not required by law. The above report was generated using voice recognition software. It may contain grammatical, syntax or spelling errors. Electronically signed by: Maximiliano Arciniega M.D. 06/16/2019 9:27 AM ECG Data Attestation: I personally reviewed and interpreted this ECG as follows: Indication: + weakness and + other (hypertension, dizziness) Rate (beats per minute): 102 Rhythm: + sinus tachycardia ECG Intervals/blocks: + Normal QRS (QRS 70.) and + Normal QT-c (QT-c 461.) ECG Weldon: + Normal ECG ST segments: no ST depression and no ST elevation ECG Findings: no PACs and no PVCs Blood Pressure Blood Pressure Findings: Elevated blood pressure Blood Pressure Disposition: further management by hospitalist [facility] Narrative The patient is a pleasant 68-year-old woman with a past medical history of hypertension who presents emergency department with episode of transient ataxia lasting several minutes which occurred when she woke up this morning with subsequent fatigue and lightheadedness per HPI. Patient symptoms occur in the setting of having recent elevated blood pressures which was being addressed by increasing her lisinopril. Of note, the patient reports having a sinus infection last week for which she completed a course of amoxicillin. On arrival the patient is fatigued appearing but no acute distress, afebrile with blood pressure 180s/80s and otherwise stable vital signs. The patient appears clinically dry. TMs are clear. She has mild maxillary sinus discomfort. She has no focal neurologic deficits. Patient does have a pronounced systolic murmur. EKG without overt acute ischemia. Chest x-ray negative for acute process. WBC, H/H and platelets within normal limits. Chemistry without acidosis. Electrolytes LFTs unremarkable. BUN/creatinine> 20 consistent with the patient's clinical dry appearance. Electrolytes and LFTs unremarkable. T roponin negative/undetectable. Patient feeling improved after IV fluid hydration. Blood pressure also improved to 140s/80s with IV fluid hydration alone. The patient's episode of ataxia without any clear symptoms to suggest vertigo concern exists for possible TIA. Given evidence of carotid disease reasonable to proceed with admission for further stroke/TIA evaluation. Patient was agreeable this plan. Case was discussed with Dr. Ontiveros, [facility] hospitalist, who evaluate the patient for admission. This patient was managed with the assistance of resident, Dr. Rosio Samuel. I discussed the case with the resident, examined the patient, and confirm the findings and plan as documented in this note. Impression & Plan Stroke-like symptom, HTN (hypertension), Dehydration, Systolic murmur Discharge Plan Visit Data *Final* Discharge Date/Time: 06/16/19 12:36 Chief Complaint: Hypertension Stated Complaint: HIGH BP,DIZZY,TIGHTNESS IN SHOULDER BLADES ED Provider: Crescencio Up ED Midlevel Provider: Rosio Samuel Discharge Problem: Stroke-like symptom, HTN (hypertension), Dehydration, Systolic murmur Patient Disposition: Admitted As Inpatient Discharge Instructions Interventions: ED Discharge Assessment Last Done: 06/16/19 12:36 Discharge Problem: HTN (hypertension) Qualifiers: Hypertension type: unspecified Qualified Code(s): I10 - Essential (primary) hypertension The scribe's documentation has been prepared under my direction and personally reviewed by me in its entirety. I confirm that the note above accurately reflects all work, treatment, procedures, and medical decision making performed by me.
--- NOTE | 2019-06-16 18:01 | Neurology Consultation ---
Date of Consultation June 16, 2019 Assessment & Plan (1) HTN (hypertension): (2) Stroke-like symptom: Maria Luisa Virgen is a 68 yo woman w/ PMH of hypertension, hyperlipidemia, GERD, and history of breast cancer status post partial mastectomy and radiation who presents to [facility] after acute onset of unsteadiness, lightheadedness, blurry vision and gait preference to the right (veering to the right). # Possible TIA: Certainly has risk factors for possible stroke, however, cannot rule out hypertensive urgency given situation with elevated BP. Symptom localization: posterior circulation Stroke mechanism: cardioembolic vs lacunar/lipohyalinosis TIA workUp: - CT head: No hemorrhage or hypodensity - CTA head/neck: Moderate right ICA stenosis with complex plaque at the bifurcation, mild intra-and extracranial atherosclerosis, no other LVO, high- grade stenosis or aneurysm - MRI brain: pending - TTE: EF 60 to 65%, type I diastolic dysfunction, mild left atrial dilation, aortic sclerosis without stenosis - Telemetry: pending - A1c: pending - FLP: pending - Troponin, TSH: Negative, pending TIA management: - Acute treatment: ASA - Continuous cardiac monitoring, will consider Holter monitor as outpatient if t elemetry here unrevealing - Vitals, Neurochecks, NIHSS per unit routine - BP parameters: SBP CAP 220, hold home anti-hypertensives for permissive HTN, IV Labetalol/Hydralazine PRN - Obtain MRI brain to evaluate stroke burden - Complete ischemic stroke workup with TTE without bubble, A1c, fasting lipid panel, TSH - Consult speech, PT, OT for supportive management - Will cemetery counselor concerning stroke education, smoking cessation, healthy diet, physical activity, weight loss - Follow up with PCP for assistance with outpatient goals (BP <135/85, LDL <70, A1c <7) - Follow up in neurology clinic in 6-8 weeks Secondary Stroke Prevention: - Antiplatelet: ASA 81mg po daily - Anticoagulation: Not indicated at this time - Statin: Atorvastatin 40mg daily pending results of LDL HTN: - BP parameters, as above - Hold home BP meds (insert) for now in favor of permissive HTN FEN/GI: - Diet: Cardiac HH diet and PO meds given absence of bulbar signs or symptoms - Monitor lytes and replete PRN Glucose Control: - Sliding scale insulin and accuchecks per primary team to avoid hyperglycemia Thank you for this interesting consult. Plan of care was discussed with primary team. Please call with any questions. (3) Hyperlipidemia: History of Present Illness Attending Physician: Patience Ontiveros DO History of Present Illness Maria Luisa Virgen is a 68 yo woman w/ PMH of hypertension, hyperlipidemia, GERD, and history of breast cancer status post partial mastectomy and radiation who presents to [facility] after acute onset of unsteadiness, lightheadedness, blurry vision and gait preference to the right (veering to the right). Last seen well around 7:30 AM on 06/16/2019; symptoms resolved after about 10-15 minutes. She is all day symptoms are due to high blood pressure and took her blood pressure on the time and noted systolics in the 150s. She also took her lisinopril and did not notice any change in symptoms so presented to the emergency department for evaluation. In the ED, blood pressure 181/82, heart rate 104, afebrile, satting 90% on room air. Labs notable for hemoglobin 14.9, platelets 250, creatinine 0.8, glucose 89 with otherwise unremarkable BMP, abnormal calcium/phosphorus/magnesium, LFTs within normal, troponin negative. Chest x-ray showed no pneumonia or cardiomegaly. Independent review of CT head shows no hemorrhage or hypodensity. CTA of the head and neck shows moderate right ICA stenosis with a complex plaque at the bifurcation and mild intracranial and extracranial atherosclerosis. MRI brain is still pending. On examination this afternoon, s he reports that symptoms that she had this morning have now resolved for the most part. Allergies Allergy/AdvReac Type Severity Reaction Status Date / Time steroids Allergy Severe severe Uncoded 06/16/19 08:52 rash from knees to neck Home Medications Home Medications Medication Instructions Recorded Confirmed Type albuterol sulfate 2 puff INHALATION Q4H PRN 06/16/19 06/16/19 History coenzyme Q10 [CoQ-10] 30 mg PO HS 06/16/19 06/16/19 History lisinopril 40 mg PO QAM 06/16/19 06/16/19 History melatonin 5 mg PO HS 06/16/19 06/16/19 History pantoprazole 40 mg PO QAM 06/16/19 06/16/19 History pravastatin 10 mg PO HS 06/16/19 06/16/19 History Patient History Medical History Breast cancer (Chronic ~2009) GERD (gastroesophageal reflux disease) HTN (hypertension) (Acute) Hyperlipidemia Surgical History History of cholecystectomy History of lumpectomy Family History Other Myocardial infarction Social History Preferred Language: Tajik Communication Ability: Effective 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 Physical Exam Physical Exam: General Exam: GEN: NAD, sitting down in examination bed. HEENT: No conjunctival injection, moist mucus membranes. CV: RRR on monitor, no significant peripheral edema. PULM: Nonlabored respirations on room air. Neuro Exam: MS: Awake and Alert. Oriented to person, place, and date. Speech fluent and appropriate without dysarthria or paraphasic errors. Language intact including naming, comprehension, repetition. Cognition and memory grossly intact. Attention intact. No neglect. CN: Visual hinds full. No extinction to double simultaneous stimuli. No optic disc edema on fundoscopic exam. PERRLA OU. EOMI without nystagmus. Facial sensation intact to LT. Facial muscles full and symmetric. Hearing intact to finger rub bilaterally. Uvula midline with symmetric palatal elevation. Shoulder shrug normal. Tongue midline. MOTOR: Normal bulk and tone. No pronator drift. BUE strength 5/5 at deltoids, biceps, triceps, wrist flexors and extensors, and finger flexors bilaterally. BLE strength 5/5 at iliopsoas, hamstrings, quadriceps, tibialis anterior, and gastrocnemius bilaterally. REFLEXES: 2+ at biceps, triceps, brachioradialis, patella, and trace Achilles bilaterally. Flexor plantar responses bilaterally. SENSORY: Intact to LT throughout, no extinction to double simultaneous stimuli. Vibration and temperature intact throughout COORDINATION: No dysmetria or ataxia on [id number] bilaterally. Normal Brandi bilaterally. GAIT: Deferred due to physical status. NIH STROKE SCALE 1A. Level of Consciousness (0-3) = 0 1B. LOC Questions (0-2) = 0 1C. LOC Commands (0-2) = 0 2. Best Horizontal Gaze (0-2) = 0 3. Visual Hinds (0-3) = 0 4. Facial Palsy (0-3) = 0 5. Motor Arm Right (0-4) = 0 Left (0-4) = 0 6. Motor Leg Right (0-4) = 0 Left (0-4) = 0 7. Limb Ataxia (0-2) = 0 8. Sensory (0-2) = 0 9. Best Language (0-3) = 0 10. Dysarthria (0-2) = 0 11. Extinction and Inattention (0-2) = 0 NIHSS TOTAL = 0 Results & Data Vital Signs (Past 12 Hours) Vital Signs Temp Pulse Pulse Resp BP BP Pulse Ox 06/16/19 16:09 112 H 06/16/19 16:03 37.0 C 84 18 130/68 97 06/16/19 13:17 36.7 C 84 20 160/83 H 97 06/16/19 12:30 85 14 146/83 H 97 06/16/19 12:00 85 21 147/78 H 97 06/16/19 11:30 93 H 21 172/95 H 96 06/16/19 11:00 84 18 137/78 97 06/16/19 10:30 84 21 141/73 H 98 06/16/19 10:11 85 24 152/68 H 98 06/16/19 09:30 82 14 149/86 H 99 06/16/19 09:00 90 18 169/90 H 97 06/16/19 08:33 112 H 18 178/86 H 96 06/16/19 08:30 98 06/16/19 08:18 36.5 C 104 H 20 181/82 H 98 PG Care Time/CCT Total # of Minutes Spent Total Time Spent with Patient: Total time spent is greater than 50% in coordination of care (as documented) at patient's floor/unit and/or counseling patient: Coding Level of Care Code 59323 Inpt Consult Level 5 Diagnoses HTN (hypertension) I10 Hypertension type: unspecified Stroke-like symptom R29.90 Hyperlipidemia E78.5 Hyperlipidemia type: unspecified (1) HTN (hypertension) Hypertension type: unspecified Qualified Code(s): I10 - Essential (primary) hypertension (2) Hyperlipidemia Hyperlipidemia type: unspecified Qualified Code(s): E78.5 - Hyperlipidemia, unspecified
[2019-06-16] MEDS ORDERED: GLUCOSE 10 TABS/TUBE PO PRN (19:18)
[2019-06-16] MEDS ORDERED: GLUCOSE 40% GEL 15 GM TUBE PO PRN (19:18)
[2019-06-16] MEDS ORDERED: DEXTROSE 50% 50 ML SYRINGE IV PRN (19:18)
[2019-06-16] MEDS ORDERED: GLUCAGON FOR INJ 1 MG VIAL SQ PRN (19:18)
[2019-06-16] MEDS ORDERED: CARBOHYDRATES FOR HYPOGLYCEMIA PO PRN (19:18)
[2019-06-16] MEDS ORDERED: GADOBUTROL 65ML VIAL IV PRN (19:45)
--- NOTE | 2019-06-16 19:55 | Magnetic Resonance Report ---
MRI OF THE BRAIN WITHOUT AND WITH IV CONTRAST CLINICAL HISTORY: Dizziness, hypertension, ataxia. Possible stroke COMPARISON STUDY: Noncontrast head CT performed 06/16/2019 TECHNIQUE: MRI of the brain was performed from the vertex to the skull base utilizing various T1 and T2 weighted sequences. Following the IV administration of 5.5 mL of Gadavist contrast, additional enh anced images were obtained. FINDINGS: Sagittal T1, axial diffusion, proton density and T2 weighted axial, coronal FLAIR, and pre and post a xial T1-weighted images were acquired. These were supplemented with post gadolinium coronal T1 weight ed images. No intra or extra-axial mass lesions are visualized. Axial diffusion-weighted images reveal no evidence of acute or subacute infarction. There is no evidence of ventricular dilatation. Proton density T2-weighted and FLAIR images reveal scattered foci of increased T2 signal within the w renato matter, likely on a small vessel basis. There is a focus of increased T2 signal within the right lentiform nucleus, likely representing a tiny lacunar infarct. Dilated perivascular spaces could pot entially appear similar There are no abnormal flow voids. There is no evidence of pathologic enhancement. IMPRESSION: 1. No acute intracranial findings 2. No evidence of intracranial mass 3. No evidence of acute or subacute infarction 4. Scattered foci of increased T2 and FLAIR signal within the white matter, likely on a small vessel basis ACT 112: Negative or not required by law. Electronically signed by: Jeronimo Sánchez M.D. 06/16/2019 7:54 PM
[2019-06-16 20:55] LABS: Appearance Urine Clear (Clear); Bilirubin Urine Negative (Negative); Blood Urine Negative (Negative); Color Urine Yellow; Glucose Urine UA Negative (Negative); Ketones Urine Negative (Negative); Leukocyte Esterase Urine Negative (Negative); Nitrite Urine Negative (Negative); Protein Urine Negative (Negative); Urobilinogen Urine Negative (Negative); pH Urine 7.5 (4.5-7.5)
[2019-06-16] MEDS ORDERED: MELATONIN 5MG TAB PO PRN (20:59)
[2019-06-16] MEDS ORDERED: INSULIN ASPART 100 UNITS/ML 3 ML PEN SC SCH (21:00)
[2019-06-16] MEDS ORDERED: PRAVASTATIN SOD 40 MG TAB PO SCH (21:00)
[2019-06-16] MEDS ORDERED: NON-FORMULARY MEDICATION (Melatonin 5 MG) PO SCH (21:00)
[2019-06-16] MEDS ORDERED: NON-FORMULARY MEDICATION (Coenzyme Q10 [Coq-10] 30 MG) PO SCH (21:00)
--- NOTE | 2019-06-16 21:39 | Electrocardiogram Report ---
Test Reason : Blood Pressure : / mmHG Vent. Rate : 102 BPM Atrial Rate : 102 BPM P-R Int : 142 ms QRS Dur : 070 ms QT Int : 354 ms P-R-T Axes : 071 068 065 degrees QTc Int : 461 ms Sinus tachycardia Biatrial enlargement Abnormal ECG No previous ECGs available Confirmed by Meir Hurtado ([id number]) on 06/16/2019 9:38:44 PM Referred By: REFERRED SELF Confirmed By:Meir Hurtado
[2019-06-17] MEDS ORDERED: MELATONIN: ORDER AWAITING ACTION SCH
[2019-06-17 07:08] LABS: Estimated Average Glucose 114 mg/dl; Hemoglobin A1C 5.6 % (4.5-5.6)
[2019-06-17 07:25] LABS: Thyroid Stimulating Hormone 2.41 uIu/ml (0.300-4.500)
[2019-06-17] MEDS ORDERED: PANTOprazole 40 MG TAB PO SCH (09:00)
[2019-06-17] MEDS ORDERED: ASPIRIN 81 MG ECTAB PO SCH (09:00)
--- NOTE | 2019-06-17 15:11 | Discharge Summary ---
Date of Service June 17, 2019 Admission HPI Per Admitting Provider Maria Luisa Virgen is a pleasant 68yo C female with remote history of breast cancer s/p partial mastectomy and XRT, briefly on hormone therapy, HTN/HLP and GERD. She presents today after a brief episode of ataxia. She reports waking this morning and having some bandlike discomfort across her back/shoulder blades. When she got out of bed to walk to the bathroom she felt unsteady on her feet, lightheaded and started leaning to the right. She also had some blurry vision in both eyes. She sat down and checked her blood pressure which was 150 systolic. She took her Lisinopril 40mg. Her symptoms resolved after appr oximately 10 minutes. Patient now with mild headache and still has some minor visual disturbance/blurry vision in her right eye. Otherwise no complaints. She denies fevers/chills/chest pain/palpitations/SOB/cough/wheeze/abdominal pain/nausea/vomiting or diarrhea. She has constipation at baseline. She reports markedly elevated blood pressures a few weeks ago - 170 - 180/100. She recently increased her Lisinopril from 20mg po daily to 40. She keeps track of her blood pressure and has noticed improvement with the increased dose. Now 130-140's typically. She has occasional dizziness after taking her medication. ER Course: NSS Principal Diagnosis TIA with symptoms of vertigo, gait imbalance Discharge Exam Constitutional WD/WN, vitals as above Eyes EOM intact bilaterally; no conjunctival abnormality ENMT external ear and nose normal, oropharynx normal Neck trachea midline, no thyromegaly normal visual inspection Respiratory normal respiratory effort, lungs clear to auscultation no respiratory distress Cardiovascular RRR, no murmur, no edema Gastrointestinal (Abdomen) Inspection/Auscultation: abdomen normal to inspection; abdomen not distended Musculoskeletal no cyanosis or clubbing, extremities motor strength 5/5 Skin no rashes, warm and dry Neurologic moves all extremities and awake Psychiatric Orientation: alert, oriented to person and cooperative Discharge Data Allergies Allergy/AdvReac Type Severity Reaction Status Date / Time steroids Allergy Severe severe Uncoded 06/16/19 08:52 rash from knees to neck Consultations 06/16/19 11:11 ED Decision to Admit Stat 06/16/19 13:13 Consult Neurology Routine Ordered Studies 06/16/19 09:41 CT angio head w con Stat CT angio neck with con Stat CT head/brain wo con Stat 06/16/19 13:13 MR brain wo/w con Routine Hospital Course (1) Stroke-like symptom: Convincing story of a posterior TIA. - No stroke seen on MRI brain. Echo was normal without a PFO. - CTA neck showed 50% stenosis on the right ICA. Will need surveillance with PCP or neurology at usual intervals (6 months per my review). - Discharged on ASA 81 mg and atorvastatin 40 mg HS. - She has had prior statin intolerances, but was willing to try again given the TIA and continued high lipids. - Finally, she may need Holter monitor to look for cardioembolic sources. Given the lack of stroke and posterior nature, I did not arrange this, but could be considered as outpatient. (2) HTN (hypertension): Patient recently increased her Lisinopril from 20mg to 40mg daily. BP was high initially, but this was in the setting of her TIA, so not clear if it is significant. BP was better controlled on morning of discharge (130/70). - Continue home dose -> Will check daily BPs and follow up with PCP. (3) Hyperlipidemia: Chronic. Fasting lipid panel was sup-optimal. Chol 235, LDL 140, HDL 77. - As above, switched to atorvastatin 40mg PO HS. She was open to trying this to see if this caused muscle aches. (4) GERD (gastroesophageal reflux disease): Chronic. Stable. - Continue Protonix Total Time Total Time Spent Total Time Spent (In Minutes): 35 Discharge Plan Discharge Items Patient Disposition: Home - Self-Care Reason For Visit: ATAXIA, TIA/CVA Discharge Diagnosis: TIA Activity: Resume your previous activity Non-emergency contact: Primary Care Provider and Neurologist Call non-emergency contact if: your symptoms worsen Follow-up/Referrals: Agnes Valladares MD [Physician] - 08/13/19 9:00 am (Please see Dr. Valladares in 4-6 weeks. IF YOU CAN NOT MAKE THIS APT, PLEASE CALL THE OFFICE AND RESCHEDULE) Jamari Escalona DO [Primary Care Provider] - 06/22/19 1:50 pm (IF YOU CAN NOT MAKE THIS APT. PLEASE CALL THE OFFICE AND RESCHEDULE) Diet: Heart Healthy Addtl Attending Provider Instructions: Ms. Virgen, You were admitted to the hospital with symptoms consistent with a TIA ("mini- stroke"). Luckily, the MRI of your brain did not show any stroke, and the symptoms have almost entirely resolved by the time of your discharge. We did an ultrasound of your heart that showed a good heart squeeze and no major issues with your heart valves. This means the heart murmur you have is benign or harmless. We did check your lipids, and they were quite high, even on your pravastatin. (Cholesterol 235, LDL 140, HDL 77) We would like to switch you to a statin that is a bit more powerful. We know that you have had some muscle cramps with prior high-intensity statins, so we will try a moderate dose. This is something you can work with Dr. Wray and Dr. Valladares on. Dr. Wray may have you wear a Holter monitor (heart monitor) as sometimes TIAs and strokes can be caused by abnormal heart rhythms. However, we did not see any rhythm issues on the monitor in the hospital, and we will defer this to Dr. Wray and Dr. Valladares as an outpatient. Please come back to the ER if you have a recurrence of your symptoms. Time is very important in strokes, so waiting to see if the symptoms will go away could risk making the symptoms permanent. Pending Studies at Discharge: No Stand-Alone Forms: My [facility], Smoking Cessation Medications and DC Order Prescriptions: New aspirin [Ecotrin Low Strength] 81 mg Tablet,Delayed Release (Dr/Ec) 81 mg PO QAM Qty: 30 RF: 0 atorvastatin 40 mg tablet 40 mg PO HS Qty: 30 RF: 0 lisinopril 40 mg tablet 40 mg PO DAILY Qty: 30 RF: 1 Continued pantoprazole 40 mg tablet,delayed release (DR/EC) 40 mg PO QAM RF: 0 albuterol sulfate 90 mcg/actuation HFA aerosol inhaler 2 puff INHALATION Q4H PRN (Reason: Shortness Of Breath Or Wheezing) RF: 0 coenzyme Q10 [CoQ-10] 30 mg Capsule 30 mg PO HS RF: 0 melatonin 5 mg Tablet 5 mg PO HS RF: 0 Discontinued pravastatin 10 mg tablet 10 mg PO HS RF: 0 Discharge Orders: Discharge Order (Routine); Ordered 06/17/19 Ordered By: Tito Rodriguez/Other Patient Handouts: Stroke Dc Admission Data Admit Date/Time: 06/16/19 11:49 Attending Provider: Tito Quarles Admit Provider: Patience Ontiveros Primary Care Provider: Jamari Escalona Other Providers: Agnes Valladares ; Tito Quarles. Other Interventions: Discharge Summary Assessment (RN) Last Done: 06/17/19 10:16 DC Date/Time DO NOT enter until pt leaves facility: 06/17/19 10:43 Coding Level of Care Code 60336 OBS Care - Discharge Diagnoses Stroke-like symptom R29.90 HTN (hypertension) I10 Hypertension type: unspecified Hyperlipidemia E78.5 Hyperlipidemia type: unspecified GERD (gastroesophageal reflux disease) K21.9 Esophagitis presence: esophagitis presence not specified
== END 2019-06-17 10:43 | disposition home or self-care (01) ==
LOC: ED 08:17 → 2S 08:17 → SUATTDRO 11:49 → 2S 12:36